=== PATIENT | female | born 1995 | race African-American/Black ===

== ENCOUNTER 2023-12-24 21:54 | Emergency (ER) | payer OTHER ==
[~2023-12-24] VITALS: Ht 160 cm; Wt 68.0 kg
[~2023-12-24 21:54] MED LIST: OMEPRAZOLE DR20 MG PO; ZOFRAN4 MG/TAB PO
[2023-12-24] MEDS ORDERED: ACETAMINOPHEN 325 MG/TAB PO ONE (23:05)
[2023-12-24] MEDS ORDERED: CLINDAMYCIN HCL 150 MG CAP PO ONE (23:05)
[2023-12-24] MEDS ORDERED: CLINDAMYCIN300 M1 PO (23:10)
[2023-12-24 23:21] VITALS: BP 125/86
== END 2023-12-24 23:27 | disposition home or self-care (01) ==
LOC: ED 21:54
DX: O99.619 Diseases of the digestive system complicating pregnancy, unspecified trimester (principal); K02.9 Dental caries, unspecified; Z3A.00 Weeks of gestation of pregnancy not specified